=== PATIENT | male | born 1950 | race Caucasian/White ===

== ENCOUNTER 2019-12-13 16:07 | Inpatient (IN) ==
[2019-12-13 17:30] LABS: Basophils % 0.3 %; Eosinophils # 0.1 K/mcL (0.0-0.6); Eosinophils % 2.1 %; Hematocrit 37.8 % (37.5-50.1); Hemoglobin 11.6 g/dL (12.9-16.9); Immature Granulocytes % 0.5 % (0-4); Lymphocytes # 1.2 K/mcL (0.6-4.6); Lymphocytes % 19.2 %; Mean Corpuscular HGB Conc 30.7 g/dL (31.6-35.5); Mean Corpuscular Hemoglobin 28.3 pg (28.0-33.3); Mean Corpuscular Volume 92.2 fL (83.0-100.0); Mean Platelet Volume 11.1 fL (9.4-12.4); Monocytes # 0.8 K/mcL (0.0-1.3); Monocytes % 13.1 %; Platelet Count 203 K/mcL (140-400); Red Cell Distribution Width 17.8 % (11.5-14.5); Segmented Neutrophils % 64.8 %; White Blood Count 6.1 K/mcL (4.3-11.1)
[2019-12-13] MEDS ORDERED: Ipratropium/Albuterol Neb 3 ML IH ONE (17:31)
[2019-12-13 17:59] LABS: Albumin 3.3 g/dL (3.5-5.7); Bilirubin,Direct 0.2 mg/dL (0.0-0.2); Bilirubin,Indirect 0.3 mg/dL (0.0-1.0); Bilirubin,Total 0.5 mg/dL (0.3-1.0); Calcium 9.4 mg/dL (8.6-10.3); Globulin 3.2 g/dL (2.4-3.5); Potassium 4.4 mEq/L (3.5-5.1); Total Protein 6.5 g/dL (6.4-8.9); Troponin I 0.04 ng/mL (< 0.04)
[2019-12-13] MEDS ORDERED: Furosemide 40 MG/4 ML VIAL IVP ONE (17:59)
[2019-12-13] MEDS ORDERED: Aspirin 81 MG TAB.CHEW PO STA (18:15)
[2019-12-13 19:03] LABS: Bacteria,Urine Few per hpf (None-Few); Bilirubin,Urine Negative (Negative); Blood,Urine Negative (Negative); Clarity,Urine Clear (Clear); Color,Urine Light-Yellow (Yellow); Glucose,Urine (UA) Normal (Normal); Hyaline Casts,Urine Few per lpf (None Seen); Ketones,Urine Negative (Negative); Leukocyte Esterase,Urine Negative (Negative); Mucus,Urine Few per lpf (None-Few); Nitrite,Urine Negative (Negative); Protein,Urine 50 mg/dL (Neg-Trace); RBC,Urine 0-3 per hpf (0-3); Specific Gravity,Urine 1.017 (1.010-1.025); Squamous Epithelial Cell,Urine Few per hpf (None-Few); Urobilinogen,Urine Normal (Normal); WBC,Urine 0-3 per hpf (0-3)
[2019-12-13] MEDS ORDERED: Naloxone 0.4 MG/ML INJ IVP PRN (21:19)
[2019-12-13] MEDS ORDERED: Dextrose Gel 15 GM/37.5 ML TUBE PO PRN ×2 (22:53)
[2019-12-13] MEDS ORDERED: *HR* Dextrose 50 % in Water (Vial) 50 ML VIAL IVP PRN (22:53)
[2019-12-13] MEDS ORDERED: D5% in Water 1,000 ML IVC PRN (22:53)
[2019-12-13] MEDS ORDERED: Nicotine 2 MG GUM BC PRN (23:10)
[2019-12-13] MEDS: Ipratropium/Albuterol Neb 3 ML IH SCH (23:11)
[2019-12-14] MEDS: Ipratropium/Albuterol Neb 3 ML IH SCH ×4 (03:41→22:15)
[2019-12-14] MEDS: *HR* Heparin 5,000 UNIT/ML VIAL SQ SCH ×2 (05:28→17:28)
[2019-12-14 06:11] LABS: Hematocrit 35.4 % (37.5-50.1); Hemoglobin 10.9 g/dL (12.9-16.9); Mean Corpuscular HGB Conc 30.8 g/dL (31.6-35.5); Mean Corpuscular Hemoglobin 27.6 pg (28.0-33.3); Mean Corpuscular Volume 89.6 fL (83.0-100.0); Mean Platelet Volume 10.8 fL (9.4-12.4); Platelet Count 208 K/mcL (140-400); Red Blood Count 3.95 M/mcL (4.19-5.50); Red Cell Distribution Width 17.7 % (11.5-14.5); White Blood Count 5.1 K/mcL (4.3-11.1)
[2019-12-14 06:39] LABS: Calcium 9.2 mg/dL (8.6-10.3); Potassium 4.2 mEq/L (3.5-5.1); Troponin I 0.04 ng/mL (< 0.04)
[2019-12-14 07:06] LABS: Magnesium 1.7 mg/dL (1.6-2.6)
[2019-12-14] MEDS ORDERED: Furosemide 40 MG/4 ML VIAL IVP SCH (09:00)
[2019-12-14] MEDS: Isosorbide MONOnitrate (24 HR) 30 MG TAB.ER.24H PO SCH (09:04)
[2019-12-14] MEDS: allopurinoL 100 MG TABLET PO SCH (09:04)
[2019-12-14] MEDS: Insulin LISPRO 300 UNITS/3 ML VIAL SQ SCH ×4 (09:04→21:49)
[2019-12-14] MEDS: Aspirin Enteric Coated 81 MG Tablet PO SCH (09:04)
[2019-12-14] MEDS: carvediloL 25 MG TABLET PO SCH ×2 (09:09→17:28)
[2019-12-14] MEDS: Budesonide/Formoterol 160/4.5 1 PUFF INH IH SCH ×2 (09:45→22:15)
[2019-12-14] MEDS ORDERED: Furosemide 40 MG/4 ML VIAL IV ONE (10:30)
[2019-12-14] MEDS: predniSONE 20 MG TABLET PO SCH (11:02)
[2019-12-14] MEDS ORDERED: Perflutren Lipid Microsphere 1.3 ML in 0.9 % Sodium Chloride 8.7 ML IVP PRN (13:17)
[2019-12-14 19:59] LABS: Mixed Venous Blood pCO2 54 mmHg (44-46); Mixed Venous Blood pH 7.32 pH Units (7.34-7.36); Mixed Venous Blood pO2 44 mmHg (35-45)
[2019-12-14] MEDS ORDERED: Acetaminophen 325 MG TABLET PO PRN (20:06)
[2019-12-14] MEDS ORDERED: Furosemide 80 MG in 0.9 % Sodium Chloride 50 ML IV SCH (21:00)
[2019-12-14] MEDS ORDERED: Melatonin 3 MG TABLET PO ONE (23:15)
[2019-12-15 01:42] LABS: Basophils % 0.3 %; Mean Corpuscular Hemoglobin 27.5 pg (28.0-33.3)
[2019-12-15 01:44] LABS: Eosinophils % 0.3 %; Immature Granulocytes % 0.5 % (0-4); Immature Platelets 5.5 % (1.1-6.1); Lymphocytes # 0.6 K/mcL (0.6-4.6); Lymphocytes % 15.5 %; Mean Corpuscular HGB Conc 30.3 g/dL (31.6-35.5); Mean Corpuscular Volume 90.7 fL (83.0-100.0); Mean Platelet Volume 11.8 fL (9.4-12.4); Monocytes # 0.3 K/mcL (0.0-1.3); Neutrophils # 2.8 K/mcL (1.6-8.9); Platelet Count 117 K/mcL (140-400); Red Blood Count 3.64 M/mcL (4.19-5.50); Red Cell Distribution Width 17.6 % (11.5-14.5); Segmented Neutrophils % 75.4 %; White Blood Count 3.7 K/mcL (4.3-11.1)
[2019-12-15] MEDS: Ipratropium/Albuterol Neb 3 ML IH SCH ×4 (04:01→21:52)
[2019-12-15] MEDS: *HR* Heparin 5,000 UNIT/ML VIAL SQ SCH ×2 (05:18→17:35)
[2019-12-15] MEDS: predniSONE 20 MG TABLET PO SCH (07:33)
[2019-12-15] MEDS: Aspirin Enteric Coated 81 MG Tablet PO SCH (07:33)
[2019-12-15] MEDS: allopurinoL 100 MG TABLET PO SCH (07:34)
[2019-12-15] MEDS: Isosorbide MONOnitrate (24 HR) 30 MG TAB.ER.24H PO SCH (07:34)
[2019-12-15] MEDS: carvediloL 25 MG TABLET PO SCH ×2 (07:34→17:17)
[2019-12-15] MEDS: Insulin LISPRO 300 UNITS/3 ML VIAL SQ SCH ×4 (09:50→21:00)
[2019-12-15] MEDS: Furosemide 40 MG/4 ML VIAL IVP SCH ×2 (09:50→17:17)
[2019-12-15] MEDS: Budesonide/Formoterol 160/4.5 1 PUFF INH IH SCH ×2 (10:34→21:52)
[2019-12-16 02:32] LABS: Calcium 8.7 mg/dL (8.6-10.3); Potassium 4.3 mEq/L (3.5-5.1)
[2019-12-16] MEDS: Ipratropium/Albuterol Neb 3 ML IH SCH ×4 (03:41→21:19)
[2019-12-16] MEDS: *HR* Heparin 5,000 UNIT/ML VIAL SQ SCH ×2 (05:15→17:39)
[2019-12-16] MEDS: Aspirin Enteric Coated 81 MG Tablet PO SCH (08:01)
[2019-12-16] MEDS: Furosemide 40 MG/4 ML VIAL IVP SCH ×2 (08:01→18:23)
[2019-12-16] MEDS: predniSONE 20 MG TABLET PO SCH (08:02)
[2019-12-16] MEDS: carvediloL 25 MG TABLET PO SCH ×2 (08:02→16:18)
[2019-12-16] MEDS: allopurinoL 100 MG TABLET PO SCH (08:02)
[2019-12-16] MEDS: Isosorbide MONOnitrate (24 HR) 30 MG TAB.ER.24H PO SCH (08:02)
[2019-12-16] MEDS: Insulin LISPRO 300 UNITS/3 ML VIAL SQ SCH ×4 (08:02→20:13)
[2019-12-16] MEDS: Budesonide/Formoterol 160/4.5 1 PUFF INH IH SCH ×2 (10:23→21:19)
[2019-12-16] MEDS ORDERED: Acetaminophen 325 MG TABLET PO PRN (10:51)
[2019-12-16] MEDS ORDERED: E-Z-HD (BARIUM SULF) SUSPENSION PO ONE (14:42)
[2019-12-16] MEDS ORDERED: E-Z-PAQUE (BARIUM SULF) SUSP 1 BOTTLE PO ONE (14:42)
[2019-12-16] MEDS: Albumin 25% 25gram/100mL 25 GM/100 ML IV.SOLN IVPB SCH (16:17)
[2019-12-17] MEDS ORDERED: Melatonin 3 MG TABLET PO ONE (00:10)
[2019-12-17 02:56] LABS: Calcium 9.2 mg/dL (8.6-10.3); Potassium 4.2 mEq/L (3.5-5.1)
[2019-12-17] MEDS: Ipratropium/Albuterol Neb 3 ML IH SCH ×4 (03:16→21:31)
[2019-12-17] MEDS: *HR* Heparin 5,000 UNIT/ML VIAL SQ SCH ×2 (05:48→16:24)
[2019-12-17] MEDS: Insulin LISPRO 300 UNITS/3 ML VIAL SQ SCH ×4 (07:25→21:08)
[2019-12-17] MEDS: predniSONE 20 MG TABLET PO SCH (07:38)
[2019-12-17] MEDS: Isosorbide MONOnitrate (24 HR) 30 MG TAB.ER.24H PO SCH (07:38)
[2019-12-17] MEDS: allopurinoL 100 MG TABLET PO SCH (07:38)
[2019-12-17] MEDS: Aspirin Enteric Coated 81 MG Tablet PO SCH (07:38)
[2019-12-17] MEDS: carvediloL 25 MG TABLET PO SCH ×2 (07:38→16:25)
[2019-12-17] MEDS: Albumin 25% 25gram/100mL 25 GM/100 ML IV.SOLN IVPB SCH ×2 (07:39→15:41)
[2019-12-17] MEDS: Furosemide 40 MG/4 ML VIAL IVP SCH ×2 (10:20→17:47)
[2019-12-17] MEDS: Budesonide/Formoterol 160/4.5 1 PUFF INH IH SCH ×2 (11:03→21:31)
[2019-12-17] MEDS ORDERED: metOLazone 5 MG TABLET PO ONE (12:38)
[2019-12-18] MEDS ORDERED: Haloperidol Lactate 5 MG/ML VIAL IVP ONE (00:56)
[2019-12-18] MEDS: Ipratropium/Albuterol Neb 3 ML IH SCH ×4 (03:20→21:54)
[2019-12-18 03:21] LABS: Calcium 9.4 mg/dL (8.6-10.3)
[2019-12-18] MEDS: *HR* Heparin 5,000 UNIT/ML VIAL SQ SCH ×2 (05:15→17:51)
[2019-12-18 09:03] LABS: Basophils % 0.2 %; Eosinophils % 0.3 %; Hematocrit 35.6 % (37.5-50.1); Hemoglobin 10.9 g/dL (12.9-16.9); Immature Granulocytes % 0.6 % (0-4); Lymphocytes # 1.5 K/mcL (0.6-4.6); Lymphocytes % 22.8 %; Mean Corpuscular HGB Conc 30.6 g/dL (31.6-35.5); Mean Corpuscular Hemoglobin 27.3 pg (28.0-33.3); Mean Corpuscular Volume 89.2 fL (83.0-100.0); Mean Platelet Volume 10.4 fL (9.4-12.4); Monocytes # 0.7 K/mcL (0.0-1.3); Monocytes % 10.6 %; Neutrophils # 4.2 K/mcL (1.6-8.9); Platelet Count 195 K/mcL (140-400); Red Blood Count 3.99 M/mcL (4.19-5.50); Red Cell Distribution Width 17.7 % (11.5-14.5); Segmented Neutrophils % 65.5 %
[2019-12-18 09:05] LABS: White Blood Count 6.4 K/mcL (4.3-11.1)
[2019-12-18] MEDS: Albumin 25% 25gram/100mL 25 GM/100 ML IV.SOLN IVPB SCH ×2 (09:49→15:58)
[2019-12-18] MEDS: carvediloL 25 MG TABLET PO SCH ×2 (09:50→17:51)
[2019-12-18] MEDS: Insulin LISPRO 300 UNITS/3 ML VIAL SQ SCH ×4 (09:51→20:35)
[2019-12-18] MEDS: allopurinoL 100 MG TABLET PO SCH (09:51)
[2019-12-18] MEDS: Aspirin Enteric Coated 81 MG Tablet PO SCH (09:51)
[2019-12-18] MEDS: Isosorbide MONOnitrate (24 HR) 30 MG TAB.ER.24H PO SCH (09:51)
[2019-12-18] MEDS: predniSONE 20 MG TABLET PO SCH (09:51)
[2019-12-18] MEDS: Furosemide 40 MG/4 ML VIAL IVP SCH ×2 (10:24→17:51)
[2019-12-18] MEDS: Budesonide/Formoterol 160/4.5 1 PUFF INH IH SCH ×2 (11:22→21:54)
[2019-12-18] MEDS ORDERED: *HR* Belladonna Alkaloids/Opium 30 MG RECTAL SUPPOSITORY RC ONE (12:10)
[2019-12-18] MEDS ORDERED: *HR* LORazepam 0.5 MG TABLET PO PRN (15:54)
[2019-12-19 03:07] LABS: Hematocrit 31.7 % (37.5-50.1); Hemoglobin 9.8 g/dL (12.9-16.9); Mean Corpuscular HGB Conc 30.9 g/dL (31.6-35.5); Mean Corpuscular Hemoglobin 27.9 pg (28.0-33.3); Mean Corpuscular Volume 90.3 fL (83.0-100.0); Mean Platelet Volume 11.7 fL (9.4-12.4); Platelet Count 182 K/mcL (140-400); Red Blood Count 3.51 M/mcL (4.19-5.50); Red Cell Distribution Width 17.5 % (11.5-14.5); White Blood Count 4.6 K/mcL (4.3-11.1)
[2019-12-19 03:15] LABS: Calcium 9.6 mg/dL (8.6-10.3); Magnesium 1.8 mg/dL (1.6-2.6); Potassium 3.8 mEq/L (3.5-5.1)
[2019-12-19] MEDS: Ipratropium/Albuterol Neb 3 ML IH SCH ×4 (03:33→21:49)
[2019-12-19] MEDS: *HR* Heparin 5,000 UNIT/ML VIAL SQ SCH ×2 (05:56→16:52)
[2019-12-19] MEDS: Albumin 25% 25gram/100mL 25 GM/100 ML IV.SOLN IVPB SCH ×2 (07:58→16:51)
[2019-12-19] MEDS: Aspirin Enteric Coated 81 MG Tablet PO SCH (08:06)
[2019-12-19] MEDS: Insulin LISPRO 300 UNITS/3 ML VIAL SQ SCH ×4 (08:06→20:00)
[2019-12-19] MEDS: carvediloL 25 MG TABLET PO SCH (08:06)
[2019-12-19] MEDS: predniSONE 20 MG TABLET PO SCH (08:07)
[2019-12-19] MEDS: Isosorbide MONOnitrate (24 HR) 30 MG TAB.ER.24H PO SCH (08:07)
[2019-12-19] MEDS: allopurinoL 100 MG TABLET PO SCH (08:07)
[2019-12-19] MEDS: Budesonide/Formoterol 160/4.5 1 PUFF INH IH SCH ×2 (09:14→21:49)
[2019-12-19] MEDS: Furosemide 40 MG/4 ML VIAL IVP SCH ×2 (09:51→19:59)
[2019-12-19] MEDS: MethylPREDNISolone 40 MG/ML VIAL IVP SCH (12:36)
[2019-12-19] MEDS: *HR* LORazepam 2 MG/ML VIAL IVP PRN ×2 (13:17→22:06)
[2019-12-19] MEDS ORDERED: *HR* Belladonna Alkaloids/Opium 30 MG RECTAL SUPPOSITORY RC SCH (14:00)
[2019-12-19] MEDS: *HR* Metoprolol 5 MG/5 ML VIAL IVP SCH (17:02)
[2019-12-20] MEDS: *HR* Metoprolol 5 MG/5 ML VIAL IVP SCH ×4 (00:39→18:13)
[2019-12-20] MEDS: Ipratropium/Albuterol Neb 3 ML IH SCH ×4 (03:49→23:00)
[2019-12-20] MEDS: *HR* LORazepam 2 MG/ML VIAL IVP PRN ×2 (04:44→20:58)
[2019-12-20] MEDS: *HR* Heparin 5,000 UNIT/ML VIAL SQ SCH ×2 (05:51→18:13)
[2019-12-20 07:03] LABS: Hematocrit 35.1 % (37.5-50.1); Hemoglobin 10.6 g/dL (12.9-16.9); Mean Corpuscular HGB Conc 30.2 g/dL (31.6-35.5); Mean Corpuscular Volume 89.3 fL (83.0-100.0); Mean Platelet Volume 11.9 fL (9.4-12.4); Platelet Count 194 K/mcL (140-400); Red Blood Count 3.93 M/mcL (4.19-5.50); Red Cell Distribution Width 17.6 % (11.5-14.5); White Blood Count 6.6 K/mcL (4.3-11.1)
[2019-12-20 07:33] LABS: Calcium 9.9 mg/dL (8.6-10.3); Potassium 3.6 mEq/L (3.5-5.1)
[2019-12-20] MEDS: Insulin LISPRO 300 UNITS/3 ML VIAL SQ SCH ×5 (07:41→21:24)
[2019-12-20] MEDS: Albumin 25% 25gram/100mL 25 GM/100 ML IV.SOLN IVPB SCH ×2 (07:43→15:40)
[2019-12-20] MEDS: MethylPREDNISolone 40 MG/ML VIAL IVP SCH (07:43)
[2019-12-20] MEDS: Furosemide 40 MG/4 ML VIAL IVP SCH ×2 (09:54→17:27)
[2019-12-20] MEDS: Budesonide/Formoterol 160/4.5 1 PUFF INH IH SCH ×2 (10:25→23:00)
[2019-12-20 22:38] LABS: ABG Base Excess 7 mEq/L (-2 to 3); ABG HCO3 33 mEq/L (21-27); ABG Oxygen Saturation 97 % (95-98); ABG PCO2 51 mmHg (35-45); ABG PH 7.42 pH Units (7.32-7.45); ABG PO2 94 mmHg (85-104); ABG TCO2 35 mEq/L (20-26)
[2019-12-21] MEDS: *HR* Metoprolol 5 MG/5 ML VIAL IVP SCH ×4 (00:37→18:11)
[2019-12-21] MEDS: *HR* LORazepam 2 MG/ML VIAL IVP PRN ×2 (02:46→19:52)
[2019-12-21 03:24] LABS: Hemoglobin 10.9 g/dL (12.9-16.9); Mean Corpuscular HGB Conc 30.3 g/dL (31.6-35.5); Mean Corpuscular Volume 89.1 fL (83.0-100.0); Mean Platelet Volume 11.9 fL (9.4-12.4); Platelet Count 207 K/mcL (140-400); Red Blood Count 4.04 M/mcL (4.19-5.50); Red Cell Distribution Width 17.6 % (11.5-14.5); White Blood Count 7.8 K/mcL (4.3-11.1)
[2019-12-21 03:27] LABS: Calcium 10.1 mg/dL (8.6-10.3); Potassium 3.7 mEq/L (3.5-5.1)
[2019-12-21] MEDS: Ipratropium/Albuterol Neb 3 ML IH SCH ×4 (04:22→22:38)
[2019-12-21] MEDS: *HR* Heparin 5,000 UNIT/ML VIAL SQ SCH ×2 (05:35→18:11)
[2019-12-21] MEDS: Albumin 25% 25gram/100mL 25 GM/100 ML IV.SOLN IVPB SCH ×2 (08:34→16:13)
[2019-12-21] MEDS: MethylPREDNISolone 40 MG/ML VIAL IVP SCH (08:35)
[2019-12-21] MEDS: Insulin LISPRO 300 UNITS/3 ML VIAL SQ SCH ×4 (08:46→20:23)
[2019-12-21] MEDS: cefTRIAXone 2,000 MG in Water for inj. (sterile) 20 ML IVP SCH (10:16)
[2019-12-21] MEDS: Budesonide/Formoterol 160/4.5 1 PUFF INH IH SCH ×2 (10:17→22:39)
[2019-12-21] MEDS: Furosemide 40 MG/4 ML VIAL IVP SCH ×2 (10:45→18:35)
[2019-12-21] MEDS: MetroNIDAZOLE 500 MG/100 ML 500 MG/100 ML BAG IVPB SCH ×2 (11:51→18:11)
[2019-12-22] MEDS: MetroNIDAZOLE 500 MG/100 ML 500 MG/100 ML BAG IVPB SCH ×4 (00:11→17:43)
[2019-12-22] MEDS: *HR* Metoprolol 5 MG/5 ML VIAL IVP SCH ×4 (00:11→17:41)
[2019-12-22] MEDS: *HR* LORazepam 2 MG/ML VIAL IVP PRN ×2 (03:12→13:20)
[2019-12-22] MEDS: Ipratropium/Albuterol Neb 3 ML IH SCH ×4 (04:10→21:51)
[2019-12-22 05:50] LABS: Basophils % 0.1 %; Eosinophils % 0.1 %; Hematocrit 35.6 % (37.5-50.1); Immature Granulocytes % 0.6 % (0-4); Lymphocytes # 1.1 K/mcL (0.6-4.6); Lymphocytes % 15.1 %; Mean Corpuscular HGB Conc 30.9 g/dL (31.6-35.5); Mean Corpuscular Volume 87.5 fL (83.0-100.0); Mean Platelet Volume 11.7 fL (9.4-12.4); Monocytes # 0.8 K/mcL (0.0-1.3); Monocytes % 11.6 %; Neutrophils # 5.2 K/mcL (1.6-8.9); Platelet Count 214 K/mcL (140-400); Red Blood Count 4.07 M/mcL (4.19-5.50); Red Cell Distribution Width 17.7 % (11.5-14.5); Segmented Neutrophils % 72.5 %; White Blood Count 7.2 K/mcL (4.3-11.1)
[2019-12-22] MEDS: *HR* Heparin 5,000 UNIT/ML VIAL SQ SCH ×2 (06:05→17:41)
[2019-12-22 06:13] LABS: Albumin 4.3 g/dL (3.5-5.7); Albumin/Globulin Ratio 1.8 (1.1-2.2); Bilirubin,Total 0.7 mg/dL (0.3-1.0); Calcium 10.2 mg/dL (8.6-10.3); Globulin 2.4 g/dL (2.4-3.5); Potassium 3.6 mEq/L (3.5-5.1); Total Protein 6.7 g/dL (6.4-8.9)
[2019-12-22] MEDS: Insulin LISPRO 300 UNITS/3 ML VIAL SQ SCH ×4 (10:03→20:40)
[2019-12-22] MEDS: cefTRIAXone 2,000 MG in Water for inj. (sterile) 20 ML IVP SCH (10:04)
[2019-12-22] MEDS: Albumin 25% 25gram/100mL 25 GM/100 ML IV.SOLN IVPB SCH ×2 (10:05→17:42)
[2019-12-22] MEDS: MethylPREDNISolone 40 MG/ML VIAL IVP SCH (10:05)
[2019-12-22] MEDS: Budesonide/Formoterol 160/4.5 1 PUFF INH IH SCH ×2 (10:19→21:51)
[2019-12-22] MEDS: Furosemide 40 MG/4 ML VIAL IVP SCH ×2 (10:46→17:42)
[2019-12-23] MEDS: MetroNIDAZOLE 500 MG/100 ML 500 MG/100 ML BAG IVPB SCH ×2 (00:14→05:54)
[2019-12-23] MEDS: *HR* Metoprolol 5 MG/5 ML VIAL IVP SCH ×4 (00:14→16:48)
[2019-12-23] MEDS: Ipratropium/Albuterol Neb 3 ML IH SCH ×4 (04:01→22:32)
[2019-12-23] MEDS: *HR* Heparin 5,000 UNIT/ML VIAL SQ SCH ×2 (05:54→16:48)
[2019-12-23 06:53] LABS: Eosinophils % 0.2 %; Hematocrit 37.9 % (37.5-50.1); Hemoglobin 11.5 g/dL (12.9-16.9); Immature Granulocytes % 0.3 % (0-4); Lymphocytes % 16.9 %; Mean Corpuscular HGB Conc 30.3 g/dL (31.6-35.5); Mean Platelet Volume 11.4 fL (9.4-12.4); Monocytes # 0.8 K/mcL (0.0-1.3); Monocytes % 12.3 %; Neutrophils # 4.3 K/mcL (1.6-8.9); Platelet Count 198 K/mcL (140-400); Red Blood Count 4.26 M/mcL (4.19-5.50); Red Cell Distribution Width 18.4 % (11.5-14.5); Segmented Neutrophils % 70.3 %; White Blood Count 6.1 K/mcL (4.3-11.1)
[2019-12-23 07:21] LABS: Calcium 10.5 mg/dL (8.6-10.3); Potassium 3.4 mEq/L (3.5-5.1)
[2019-12-23] MEDS: cefTRIAXone 2,000 MG in Water for inj. (sterile) 20 ML IVP SCH (09:44)
[2019-12-23] MEDS: Furosemide 40 MG/4 ML VIAL IVP SCH ×2 (09:45→16:48)
[2019-12-23] MEDS: Albumin 25% 25gram/100mL 25 GM/100 ML IV.SOLN IVPB SCH ×2 (09:45→16:49)
[2019-12-23] MEDS: MethylPREDNISolone 40 MG/ML VIAL IVP SCH (09:45)
[2019-12-23] MEDS: Insulin LISPRO 300 UNITS/3 ML VIAL SQ SCH ×4 (09:47→20:28)
[2019-12-23] MEDS: Budesonide/Formoterol 160/4.5 1 PUFF INH IH SCH ×2 (10:23→22:32)
[2019-12-23] MEDS: Ondansetron 4 MG/2 ML VIAL IVP PRN ×2 (12:58→21:25)
[2019-12-23] MEDS: Ampicillin/Sulbactam 1,500 MG in 0.9 % Sodium Chloride Mini Bag 100 ML IVPB SCH (18:59)
[2019-12-24] MEDS: Ampicillin/Sulbactam 1,500 MG in 0.9 % Sodium Chloride Mini Bag 100 ML IVPB SCH ×4 (00:12→17:09)
[2019-12-24] MEDS: *HR* Metoprolol 5 MG/5 ML VIAL IVP SCH ×4 (00:12→17:09)
[2019-12-24 02:06] LABS: Hematocrit 35.7 % (37.5-50.1); Hemoglobin 10.7 g/dL (12.9-16.9); Mean Corpuscular Hemoglobin 26.7 pg (28.0-33.3); Mean Platelet Volume 11.7 fL (9.4-12.4); Platelet Count 189 K/mcL (140-400); Red Blood Count 4.01 M/mcL (4.19-5.50); Red Cell Distribution Width 18.2 % (11.5-14.5); White Blood Count 5.4 K/mcL (4.3-11.1)
[2019-12-24 02:20] LABS: Calcium 10.2 mg/dL (8.6-10.3); Magnesium 1.8 mg/dL (1.6-2.6); Potassium 3.2 mEq/L (3.5-5.1)
[2019-12-24] MEDS: Ipratropium/Albuterol Neb 3 ML IH SCH ×3 (04:07→17:55)
[2019-12-24] MEDS: *HR* Heparin 5,000 UNIT/ML VIAL SQ SCH ×2 (05:17→17:09)
[2019-12-24] MEDS ORDERED: Potassium Chloride 40 MEQ, Lidocaine 1% 2 ML in 0.9 % Sodium Chloride 500 ML IVPB ONE (05:23)
[2019-12-24] MEDS: Insulin LISPRO 300 UNITS/3 ML VIAL SQ SCH ×3 (08:11→17:37)
[2019-12-24] MEDS: Albumin 25% 25gram/100mL 25 GM/100 ML IV.SOLN IVPB SCH ×2 (08:13→17:09)
[2019-12-24] MEDS ORDERED: MethylPREDNISolone 40 MG/ML VIAL IVP SCH (09:00)
[2019-12-24] MEDS: Furosemide 40 MG/4 ML VIAL IVP SCH (11:08)
[2019-12-24] MEDS ORDERED: lisinopriL 10 MG TABLET PO SCH (11:15)
[2019-12-24] MEDS ORDERED: Torsemide 20 MG TABLET PO SCH (11:15)
[2019-12-24] MEDS: Budesonide/Formoterol 160/4.5 1 PUFF INH IH SCH (11:37)
[2019-12-24 18:45] VITALS: BP 151/81
== END 2019-12-24 19:16 | disposition hospice, home (50) | DRG 291 ==
LOC: 2ANU 16:07 → EMEROOARM 16:07 → SUATTDRO 20:02 → 2ANU 20:45 → SUATTDRO 12-14 14:40
PROVIDERS: ADMIT Internal Medicine; ATTEND Internal Medicine